=== PATIENT | female | born 1990 | race Caucasian/White ===

== ENCOUNTER → 2016-05-19 | Outpatient (CLI) | payer BC, OTHER ==
--- NOTE | 2016-05-19 08:39 | US ---
EXAMINATION TYPE: US abdomen complete DATE OF EXAM: 05/19/2016 7:59 AM COMPARISON: CT in PACS CLINICAL HISTORY: R10.84 ABD Pain. Pt states N&V with generalized ABD pain EXAM MEASUREMENTS: Liver Length: 16.4 cm Gallbladder Wall: 0.2 cm CBD: 0.3 cm Spleen: 10.9 cm Right Kidney: 14.3 x 5.8 x 6.8 cm Left Kidney: 17.6 x 6.8 x 7.4 cm TECHNOLOGIST IMPRESSION: wnl Pancreas: wnl Liver: wnl Gallbladder: wnl Evidence for sonographic Guaman's sign: No CBD: wnl Spleen: wnl Right Kidney: Polycystic with mixed lesion upper pole= 3.4 x 3.7 x 3.9 cm Left Kidney: Polycystic with largest cyst upper pole= 3.7 x 3.1 x 3.7 cm/ Possible small calculi at mid= 5mm Upper IVC: wnl Abd Aorta: wnl Bilateral renal cysts some of which do not meet the criteria of a simple cyst. IMPRESSION: 1. Bilateral multiple renal cysts some of which do not appear to meet the criteria of a simple cyst. There is a 3.4 cm lesion with a fluid fluid level involving the right kidney further evaluation with MRI could be performed. May represent a hemorrhagic cyst. 2. Nonobstructing 5 mm left renal calculus
== END | disposition home or self-care (01) ==
LOC: RADUSWWP 07:40
PROVIDERS: ATTEND Family Medicine
DX: N28.1 Cyst of kidney, acquired (principal); N20.0 Calculus of kidney; N28.9 Disorder of kidney and ureter, unspecified
CPT/HCPCS: 76700

== ENCOUNTER → 2016-06-11 | Outpatient (CLI) | payer BC, OTHER ==
--- NOTE | 2016-06-11 13:13 | MR ---
EXAMINATION TYPE: MR kidney wo/w con DATE OF EXAM: 06/11/2016 12:53 PM COMPARISON: Ultrasound dated 05/19/2016 HISTORY: DISORDER OF KIDNEY CONTRAST: Standard multiplanar, multisequence MRI departmental protocol utilizing 15 mL intravenous MultiHance gadolinium contrast. FINDINGS: There is a nonobstructing 5 mm left renal calculus. There are in numerable bilateral renal cysts with enlargement the kidneys in a pattern suggestive of polycystic renal disease. The majority have a simple appearance. There are a few noted bilaterally wh ich have fluid fluid levels and mixed signal likely representing hemorrhagic component. There are 2 c ysts noted which have intermediate signal within the right kidney one measuring 3 cm anterior midpole and the second measuring 2 cm midpole posteriorly. Liver and pancreas have a normal appearance. Spleen has a normal appearance. Adrenal glands have a no rmal morphology. No hydronephrosis. Aorta of normal caliber. Bowel gas pattern nonspecific. IMPRESSION: 1. Polycystic renal disease with multiple cysts having fluid fluid levels likely representing hemorrh agic cysts. 2. There are 2 lesions within the right kidney which demonstrate intermediate signal on postcontrast imaging still likely representing high proteinaceous or hemorrhagic component to the cyst. Three-harika h follow-up could be obtained to confirm stability
== END | disposition home or self-care (01) ==
LOC: RADMRIMAIN 11:42
PROVIDERS: ATTEND Family Medicine
DX: N28.1 Cyst of kidney, acquired (principal); N28.89 Other specified disorders of kidney and ureter
CPT/HCPCS: 74183

== ENCOUNTER → 2016-08-26 | Outpatient (CLI) | payer BC, OTHER ==
--- NOTE | 2016-08-26 22:41 | MR ---
EXAMINATION TYPE: MR brain wo/w con DATE OF EXAM: 08/26/2016 6:15 PM COMPARISON: NONE HISTORY: 26-year-old female polycystic kidney, headaches. TECHNIQUE: Multiplanar, multisequence images of the brain and brainstem were acquired before and aft er administration of 15 mL IV MultiHance. Diffusion weighted imaging is performed. FINDINGS: No evidence for acute infarction, hemorrhage, mass, mass effect, midline shift, herniation, effacemen t of basal cisterns, or extra-axial fluid collection. The ventricles and sulci are age-appropriate. Major intracranial flow voids are intact. T2/FLAIR weighted sequences show minimal patchy periventricular and deep white matter bright signal c hange. Midline structures demonstrate normal morphology. The craniocervical junction is normal. Post contrast images demonstrate no evidence of pathologic enhancement. Dural venous sinuses are pat ent. Mucosal thickening within the maxillary sinuses and ethmoid air cells. Globes are intact. IMPRESSION: 1. No acute intracranial abnormality seen. 2. There is very minimal patchy periventricular and deep white matter signal change. Nonspecific find ings. Chronic migraines, remote small vessel insult, and chronic hypertension are some possible consi derations. 3. Moderate chronic paranasal sinus disease. 4. Note that MRA would more adequately assess for any potential intracranial aneurysm. No obvious ane urysmal change is seen on the T2 or postcontrast sequences.
== END | disposition home or self-care (01) ==
LOC: RADMRIMAIN 17:11
PROVIDERS: ATTEND Internal Medicine Nephrology
DX: R90.82 White matter disease, unspecified (principal); R51 Headache; Q61.3 Polycystic kidney, unspecified
CPT/HCPCS: 70553; A9577

== ENCOUNTER → 2016-10-10 | Outpatient (CLI) | payer BC, OTHER ==
--- NOTE | 2016-10-10 15:08 | MR ---
EXAMINATION TYPE: MR angio head wo con DATE OF EXAM: 10/10/2016 COMPARISON: NONE HISTORY: Cerebral aneurysm TECHNIQUE: Utilizing 3-D [id number] intracranial MRA of the [place] of [place] was performed. FINDINGS: The vertebrobasilar and carotid systems are patent. There is no sizable aneurysm or vascular malform ation. Left vertebral artery is dominant. IMPRESSION: 1. No evidence of vascular malformation or sizable aneurysm.
== END | disposition home or self-care (01) ==
LOC: RADMRIMAIN 14:32
PROVIDERS: ATTEND Psychiatry & Neurology Neurology
DX: I67.1 Cerebral aneurysm, nonruptured (principal)
CPT/HCPCS: 70544

== ENCOUNTER → 2016-11-03 | Outpatient (CLI) | payer BC, OTHER ==
--- NOTE | 2016-11-03 16:14 | US ---
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 The physician felt that the gland was en larged. TECHNIQUE: Multiple sonographic images of the thyroid gland are obtained. GLAND SIZE: Right Lobe: 4.1 x 1.2 x 0.9 cm Overall Parenchyma: homogenous Left Lobe: 4.2 x 0.9 x 1.0 cm Overall Parenchyma: homogeneous Isthmus Thickness: 0.3 cm NODULES RIGHT: # of nodules measured on right: 0 LEFT: # of nodules measured on left: 0 ISTHMUS: # of nodules measured in the isthmus: 0 Bilateral neck scanned, no evidence of lymphadenopathy. IMPRESSION: Unremarkable thyroid ultrasound.
== END | disposition home or self-care (01) ==
LOC: RADUSWWP 15:45
PROVIDERS: ATTEND Family Medicine
DX: E04.9 Nontoxic goiter, unspecified (principal); Z88.8 Allergy status to other drugs, medicaments and biological substances
CPT/HCPCS: 76536

== ENCOUNTER → 2016-11-20 | Outpatient (CLI) | payer BC, OTHER ==
--- NOTE | 2016-11-20 13:39 | CT ---
EXAMINATION TYPE: CT abdomen pelvis wo con DATE OF EXAM: 11/20/2016 COMPARISON: NONE HISTORY: Lt flank pain CT DLP: 394.7 mGycm Automated exposure control for dose reduction was used. TECHNIQUE: Helical acquisition of images from the lung bases through the pelvis. FINDINGS: LUNG BASES: No significant abnormality is appreciated. AORTA: No significant abnormality is appreciated. LIVER/GB: No significant abnormality is appreciated. PANCREAS: No significant abnormality is seen. SPLEEN: No significant abnormality is seen. ADRENALS: No significant abnormality is seen. KIDNEYS: The kidneys are enlarged. There are multiple cystic foci associated with the kidneys correla ting with patient's history. Nonobstructive renal calculus at the mid pole of the left kidney measure s 5 to 6 mm. No evident hydronephrosis. No evident ureteral calcification. REPRODUCTIVE ORGANS: No significant abnormality is seen. URINARY BLADDER: No significant abnormality is seen. BOWEL: No significant abnormality is seen. FREE AIR: No Free Air is visible. ASCITES: None visible. PELVIC ADENOPATHY: None visualized. RETROPERITONEAL ADENOPATHY: No Retroperitoneal Adenopathy visible. OSSEOUS STRUCTURES: No significant abnormality is seen. IMPRESSION: NONOBSTRUCTIVE LEFT RENAL CALCULUS. FINDINGS COMPATIBLE WITH PATIENT'S HISTORY OF ADULT POLYCYSTIC KI DNEY DISEASE. NONCONTRAST EXAM.
== END | disposition home or self-care (01) ==
LOC: RADCTMAIN 12:55
PROVIDERS: ATTEND Family Medicine
DX: N20.0 Calculus of kidney (principal)
CPT/HCPCS: 74176

== ENCOUNTER 2017-01-09 12:04 | Emergency (ER) | payer BC, OTHER ==
[2017-01-09] MEDS ORDERED: SODIUM CHLORIDE 0.9% 1,000 ML IV STA (12:54)
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
[2017-01-09 13:49] LABS: Basophils % (A) 0 %; CH 30.7; CHCM 35.1; Eosinophils # (A) 0.2 k/uL (0-0.7); Eosinophils % (A) 4 %; HCT 36.5 % (34.0-46.0); HDW 2.43; HGB 12.5 gm/dL (11.4-16.0); Luc # (Auto) 0.05; Luc % (Auto) 1; Lymphocytes # (A) 1.2 k/uL (1.0-4.8); Lymphocytes % (A) 25 %; MCH 29.9 pg (25.0-35.0); MCHC 34.2 g/dL (31.0-37.0); MCV 87.6 fL (80.0-100.0); Mean Platelet Volume 7.8; Monocytes # (A) 0.2 k/uL (0-1.0); Monocytes % (A) 5 %; Neutrophils # (A) 3.3 k/uL (1.3-7.7); Neutrophils % (A) 66 %; RBC 4.17 m/uL (3.80-5.40); RDW 13.2 % (11.5-15.5); WBC (Perox) 5.18
[2017-01-09 13:50] LABS: Appearance,Urine Clear (Clear); Bilirubin,Urine Negative (Negative); Glucose,Urine (UA) Negative (Negative); Ketones,Urine Negative (Negative); Leukocyte Esterase,Urine Negative (Negative); Nitrite,Urine Negative (Negative); PH, Urine 5.5 (5.0-8.0); Protein,Urine Negative (Negative); Specific Gravity,Urine 1.001 (1.001-1.035); UA Billing (MACRO vs. MICRO) CHEM; Urobilinogen,Urine <2.0 mg/dL (<2.0)
[2017-01-09 13:58] LABS: INR 1.1 (<1.2); Partial Thromboplastin Time 24.5 sec (22.0-30.0)
[2017-01-09 14:09] LABS: ALT 21 U/L (9-52); AST 16 U/L (14-36); Alkaline Phosphatase 42 U/L (38-126); Amylase 43 U/L (30-110); Anion Gap 9 mmol/L; Blood Urea Nitrogen 10 mg/dL (7-17); Calcium 9.8 mg/dL (8.4-10.2); Carbon Dioxide 24 mmol/L (22-30); Chloride 107 mmol/L (98-107); Glucose 111 mg/dL (74-99); Magnesium 1.8 mg/dL (1.6-2.3); Non-African American GFR(MDRD) >60 (>60 ml/min/1.73 sqM); Phosphorous 2.7 mg/dL (2.5-4.5); Sodium 140 mmol/L (137-145); Total Bilirubin 0.2 mg/dL (0.2-1.3); Total Protein 6.9 g/dL (6.3-8.2)
--- NOTE | 2017-01-09 14:48 | XR ---
EXAMINATION TYPE: XR KUB DATE OF EXAM: 01/09/2017 2:16 PM CLINICAL HISTORY: Pain TECHNIQUE: Single supine KUB image of the abdomen is obtained. COMPARISON: None. FINDINGS: Scattered gas is seen in non-distended small bowel loops. Gas and fecal material is seen in non-distended colon. There is no visceromegaly, pneumoperitoneum, or abnormal calcification apprecia sagrario. The lung bases are clear and the osseous structures are intact. Deformity of the transverse proc ess of the L3 vertebral body and the left is seen, likely from prior fracture. Residual vertebrae at L5 on the left is noted. IMPRESSION: Nonobstructive bowel gas pattern. No abnormal calcifications.
--- NOTE | 2017-01-09 15:39 | CT ---
EXAMINATION TYPE: CT lumbar spine wo con DATE OF EXAM: 01/09/2017 3:27 PM COMPARISON: NONE HISTORY: LOWER BACK PAIN. NO KNOWN INJURY. Complains of loss of bowel and bladder incontinence. CT DLP: 493.6 mGycm Automated exposure control for dose reduction was used. Unenhanced CT of the lumbar spine was performed. Bone and soft tissue window settings are submitted as well as coronal and sagittal reconstructions. L1-L2: Normal disc space height. No disc herniation protrusion or central stenosis. No facet joint arthropathy. No evidence for foraminal encroachment. L2-L3: Normal disc space height. No disc herniation protrusion or central stenosis. No facet joint arthropathy. No evidence for foraminal encroachment. L3-L4: Small broad-based disc bulge results in mild bilateral neural foraminal narrowing. No spinal c anal stenosis. L4-L5: Small broad-based disc bulge results in mild bilateral neural foraminal narrowing. No spinal c anal stenosis. L5-S1: Normal disc space height. No disc herniation protrusion or central stenosis. No facet joint arthropathy. No evidence for foraminal encroachment. Numerous low-density bilateral renal lesions are seen as well as 2 mm nonobstructing right renal calc pratibha (2 in number) and 4 mm nonobstructing left midpole renal calculus. No hydronephrosis is seen. Tra nsitional vertebrae is noted at L5 on the left. IMPRESSION: 1. No evidence of acute fracture, dislocation or malalignment of the lumbar spine. 2. Multilevel mild degenerative disc disease with disc bulges that do not appear to result in spinal canal stenosis. If there is clinical concern for cauda equina syndrome MRI could be performed. 3. Numerous low-density renal lesions, incompletely characterized and incompletely visualized compati ble with the patient's known history of polycystic kidney disease. 4. Nonobstructing bilateral renal calculi.
[2017-01-09 16:19] VITALS: BP 158/95; PULSE 70; RESP 18; TEMP 97.7
== END 2017-01-09 16:19 | disposition home or self-care (01) ==
LOC: EC 12:04
DX: R10.9 Unspecified abdominal pain (principal); R11.0 Nausea; J45.909 Unspecified asthma, uncomplicated; I10 Essential (primary) hypertension; Z79.3 Long term (current) use of hormonal contraceptives; Z79.899 Other long term (current) drug therapy; Z79.51 Long term (current) use of inhaled steroids; Z88.8 Allergy status to other drugs, medicaments and biological substances; Z87.448 Personal history of other diseases of urinary system
CPT/HCPCS: 36415; 72131; 74000; 80053; 81003; 82150; 83605; 83690; 83735; 84100; 85025; 85610; 85730; 87040; 87086; 96360; 96361; 99284

== ENCOUNTER 2022-10-01 07:50 | Day surgery (SDC) | payer MEDICARE, OTHER ==
[~2022-10-01 07:50] MED LIST: DEXAMETHASONE SOD PHOSPHATE 4 MG/ML 1 ML VIAL IV ONE; FAMOTIDINE 20 MG/2 ML VIAL IV PRN; HYDROmorphone 0.5 MG/0.5 ML SYRINGE IVP PRN; LACTATED RINGERS 1,000 ML IV SCH; LIDOCAINE 1% (10MG/ML) FOR IV START INTRADERMA PRN; ONDANSETRON 4 MG/2 ML VIAL IVP ONE; ONDANSETRON 4 MG/2 ML VIAL IVP PRN; SCOPOLAMINE 1 MG/72 HR PATCH TRANSDERM ONE; droPERidol 5 MG/2 ML VIAL IVP ONE; metroNIDAZOLE-NS PMX 500 MG in SALINE 1 100ML.BAG IVPB PRN
[2022-10-01] MEDS: OXYMETAZOLINE 0.05% NASL SPRAY 1 SPRAY BOTTLE EA NOSTRIL PRN ×5 (08:13→08:33)
[2022-10-01 08:30] VITALS: TEMP 98.1
[2022-10-01] MEDS ORDERED: LACTATED RINGERS 1,000 ML IV ONE (08:30)
[2022-10-01] MEDS ORDERED: PROPOFOL 10 MG/ML 20 ML VIAL IV ONE (09:34)
[2022-10-01] MEDS ORDERED: MIDAZOLAM 2 MG/2 ML VIAL ONE (09:34)
[2022-10-01] MEDS ORDERED: DEXAMETHASONE SOD PHOSPHATE 10 MG/ML 1 ML VIAL ONE (09:34)
[2022-10-01] MEDS ORDERED: fentaNYL (PF) 50 MCG/ML 2 ML AMP ONE (09:34)
[2022-10-01] MEDS ORDERED: LIDOCAINE 2% INJ 20 MG/ML (2 ML VIAL) ONE (09:34)
[2022-10-01] MEDS ORDERED: SUCCINYLCHOLINE CHLORIDE 200 MG/10 ML VIAL IV ONE (09:34)
[2022-10-01] MEDS ORDERED: HYDROmorphone (PF) 1 MG/ML ONE (09:34)
[2022-10-01] MEDS ORDERED: GLYCOPYRROLATE 0.2 MG/ML 2 ML VIAL ONE (09:34)
[2022-10-01] MEDS ORDERED: BACITRACIN ZINC 500 UNIT/GM OINT 28.4 GM TUBE TOPICAL ONE (10:12)
[2022-10-01] MEDS ORDERED: LIDOCAINE 1%-EPI 1:100,000 20 ML VIAL SQ ONE (10:12)
[2022-10-01] MEDS ORDERED: EPINEPHrine 1 MG/ML (MDV) 30 ML VIAL TOPICAL ONE (10:12)
[2022-10-01] MEDS ORDERED: FLUORESCEIN STRIPS 1 MG STRIP MISCELLANE ONE (10:12)
[2022-10-01] MEDS ORDERED: BUPIVACAINE (PF) 0.5% 30 ML VIAL SQ ONE (10:13)
--- NOTE | 2022-10-01 11:49 | P.OP ---
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 Nasal polypectomy. Anesthesia: GETA Surgeon: Anthony Monsalve Estimated Blood Loss (ml): 10 Pathology: none sent Condition: stable Disposition: PACU Indications for Procedure: This patient has had chronic sinus symptoms for very long period time she has failed appropriate medical therapy with use of antibiotics, corticosteroid nasal sprays, nasal irrigations. She has persistent facial pain and pressure and CAT scan evaluation shows chronic pansinusitis with sinonasal cysts and polyps. Deviated nasal septum, large inferior turbinates and a right middle turbinate christian bullosa. After long discussion she decided to proceed forward with functional endoscopic sinus surgery, septoplasty, turbinate surgery and polypectomy. All risks, benefits and alternative therapies were discussed in detail. Risks of bleeding, infection, need for secondary surgery, skull base injury, orbital injury etc. etc. were discussed and consent was obtained and all questions were answered. Operative Findings: Patient was found have chronic pansinusitis with sinonasal polyposis. Nose showed large obstructive inferior turbinates septal deviation to the left with significant Description of Procedure: This patient was taken to the operative room and placed in the supine position. A general inhalation anesthetic was administered to the patient by the department of anesthesia with a functioning IV line in place. The patient was monitored throughout the entire case by the department of anesthesia. The eyes were taped shut for protection. The patient was placed in a slight reverse Trendelenburg position. The patient had previously utilize Afrin nasal spray preoperatively. The nose was evaluated and the septum lateral nasal wall and inferior turbinates were injected with lidocaine 1% with epinephrine 1 100,000 bilaterally. Approximately 10 minutes were allowed wait for full vasoconstric tive effects to take place. At this point a caudal incision was made over the caudal portion of the left septum down to the mucoperichondrium. A mucoperichondrial flap was elevated on the left side and dissection was carried with use of tunnels posteriorly. We then made a crossover incision through the cartilage to the contralateral side and for the mucoperichondrial flap development was performed to the extent of visualization on the contralateral side. After the cartilage was freed with use of several crosshatching incisions and removal of some redundant strips of septal cartilage, the septum was straightened and placed back in the midline. The septum was sutured fixated to the ovarian groove. Excellent straightening occurred and the septum was visibly straight. Incision was closed with a 40 rapid Vicryl. We utilized a running nonlocking fashion for closure of the incision. A quilting stitch was used to reapproximate the septal flaps with use of a 40 rapid Vicryl. We then entered the nose with a 0 and 30 Roger luz maria endoscope. Previous to this we did inject the lateral nasal wall and middle turbinate and uncinate process with lidocaine 1% with epinephrine 1 100,000. Approximately 10 minutes were allowed wait for full vasoconstrictive effects to take place. Intranasal polyps were noted. They were noted bilaterally. The intranasal polyps were removed with use of a microdebrider. With use of a microdebrider and a pediatric backbiter, we took down the uncinate process bilaterally. We then opened the maxillary sinuses bilaterally. We utilized a microdebrider for this and entered the maxillary sinuses and removed diseased tissue and polypoid tissue. This was done bilaterally. After the maxillary sinuses were opened and the diseased tissue and polyps were removed we entered the ethmoid bulla and with use of a microdebrider and up-biting [place], we remove the anterior septations and remove diseased tissue from the anterior ethmoids with direct visualization. We then followed the fovea frontalis through the basal lamella and into the posterior ethmoid air cells and did a total ethmoidectomy with removal of polypoid material. Once the ethmoids cells were all taken down we then entered the sphenoid sinus medially and inferiorly underneath the inferior attachment of the superior turbinate. The sphenoid sinus was opened entered and diseased tissue and polyps were removed bilaterally. This was done with a microdebrider and Amada. We then entered the frontal sinuses with a giraffe and up-biting Amada entered on the agar nasi cells. We open the frontal sinus(L) and removed sinus tissue and polypoid tissue that was diseased. We explored the frontal sinus on the left side.. To summarize all sinuses were open, except the left frontal, all sinuses were explored and we remove diseased tissue and polyps from the sphenoid maxillary and frontal sinuses. Polyps were removed from the nose. Ethmoid sinuses were opened totally. Nasal pore was inserted and minimal bleeding was encountered. We reinspected the skull base there is no signs of any orbital penetration or signs of any intracranial penetration. The sugical site was reinspected after the nasal pore was placed and no bleeding was seen. The right middle turbinate christian bullosa was resected laterally. Attention was then paid to the inferior turbinates. The bilateral inferior turbinates were hypertrophic and obstructive. We entered the anterior portion of the inferior turbinates with use of a microdebrider. We remove bone and submucosal elements with use of a microdebrider bilaterally. The inferior turbinates underwent a submucosal resection with removal of submucosal tissue and bone. We obtained a much better and normal in size for breathing. The inferior turbinates were then outfractured and compressed with a Boyes nasal elevator. Excellent airway was obtained and was symmetric bilaterally. No bleeding was encountered. Intranasal splints were inserted and fixated at the end of the case. We utilized Carbajal nasal splints. There will be removed and the patient returns to the office.
[2022-10-01] MEDS ORDERED: ONDANSETRON 4 MG/2 ML VIAL IVP ONE (11:52)
[2022-10-01 12:46] VITALS: RESP 16
[2022-10-01 13:31] VITALS: BP 137/88; PULSE 46
== END 2022-10-01 13:50 | disposition home or self-care (01) ==
LOC: OR 07:50
PROVIDERS: ATTEND Otolaryngology
DX: J32.4 Chronic pansinusitis (principal); D72.10 Eosinophilia, unspecified; J34.3 Hypertrophy of nasal turbinates; J33.9 Nasal polyp, unspecified; J34.2 Deviated nasal septum; I10 Essential (primary) hypertension; J45.909 Unspecified asthma, uncomplicated; K21.9 Gastro-esophageal reflux disease without esophagitis; Z79.899 Other long term (current) drug therapy; Z98.890 Other specified postprocedural states
CPT/HCPCS: 81025; 88305; 88300; 30520; 31267; 31257; 31240; 31276; 30140; C2625; J0171; J2250; J0330; J1100 ×2; J0690; J2405; J3010; J1170; J2704; J1790; J2001